=== PATIENT | female | born 1995 | race Caucasian/White ===

== ENCOUNTER 2018-03-30 12:32 | Emergency (ER) | payer OTHER ==
[2018-03-30 12:47] VITALS: BP 122/68; PULSE 78; TEMP 98; BMI 22.8
--- NOTE | 2018-03-30 14:10 | PDOC ---
Attending Attestation - Resident Resident Name: Hiro Hinton - ED Attending Attestation I have performed the following: I have examined & evaluated the patient, The case was reviewed & discussed with the resident, I agree w/resident's findings & plan, Exceptions are as noted - HPI HPI: 03/30/18 14:43 The patient is a 23 year old female with no significant PMH or PSH who presents to the emergency department with 3 days of epigastric pain. The patient reports that her epigastric pain is persistent and worsened with eating. She states that she had BBQ meat and 1 alcoholic drink on Friday. The patient reports that she has had a similar feeling like this before, about 3 years ago which was found to be gallbladder. She does not know if she had gallstones at the time. The patient reports associated nausea with her epigastric pain. The patient denies any other symptoms. She denies chest pain, shortness of breath, headache and dizziness. She denies fever, chills, vomiting, diarrhea, constipation or urinary symptoms. The patient denies any other complaints. v - Physicial Exam PE: 03/30/18 14:43 GENERAL: Awake, alert, and fully oriented, in no acute distress HEAD: No signs of trauma EYES: PERRLA, EOMI, sclera anicteric, conjunctiva clear ENT: Auricles normal inspection, hearing grossly normal, nares patent, oropharynx clear without exudates. Moist mucosa NECK: Normal ROM, supple, no lymphadenopathy, JVD, or masses LUNGS: Breath sounds equal, clear to auscultation bilaterally. No wheezes, and no crackles HEART: Regular rate and rhythm, normal S1 and S2, no murmurs, rubs or gallops ABDOMEN: Soft, +epigastric ttp, normoactive bowel sounds. No guarding, no rebound. No masses. Negative godoy sign EXTREMITIES: Normal range of motion, no edema. No clubbing or cyanosis. No cords, erythema, or tenderness NEUROLOGICAL: Normal speech, cranial nerves intact, negative pronator drift, 5/ 5 strength in all 4 extremities, normal sensation to light touch in all 4 extremities, normal cerebellar exam, normal gait, normal reflexes and tone SKIN: Warm, Dry, normal turgor, no rashes or lesions noted. - Medical Decision Making 03/30/18 14:44 23-year-old female with no significant past medical or surgical history presents emergency Department with epigastric pain worsened after eating. Vitals unremarkable. Exam with epigastric tenderness palpation. Differential includes but is not limited to gastritis versus cholecystitis versus pancreatitis. Plan: -labs -UPT -UA -pain control/antiemetics -reassess 03/30/18 16:40 Labs and ultrasound within normal limits. Patient is very well-appearing. On repeat exam still has mild epigastric tenderness palpation. Possible gastritis. Patient tolerating PO. Will refer her to primary doctor and gastroenterology for follow-up. Patient in agreement with plan and requests discharge home. I discussed the physical exam findings, ancillary test results and final diagnoses with the patient. I answered all of the patient's questions. The patient was satisfied with the care received and felt comfortable with the discharge plan and treatment plan. The patient will call their primary care physician within 24 hours to arrange follow-up and will return to the Emergency Department with any new, persistent or worsening symptoms.
[2018-03-30] MEDS ORDERED: FAMOTIDINE 20 MG/50 ML IVPB 20 MG/50 ML MG IVPB ONE ×2 (14:17→14:37)
[2018-03-30] MEDS ORDERED: ONDANSETRON 4 MG/2 ML VIAL IVPUSH ONE (14:17)
[2018-03-30] MEDS ORDERED: ACETAMINOPHEN 1000 MG/100 ML VIAL (NON FORMULARY) IVPB ONE (14:17)
[2018-03-30 14:34] LABS: BASO % 0.3 % (0-2.0); EOS % 0.1 % (0-4.5); HEMATOCRIT 39.8 % (32.4-45.2); HEMOGLOBIN 13.2 GM/dL (10.7-15.3); MCH 30.7 pg (25.7-33.7); MCHC 33.2 g/dl (32.0-36.0); MEAN CELL VOLUME 92.7 fl (80-96); MEAN PLT VOLUME 8.8 fl (7.5-11.1); MONO % 7.3 % (3.8-10.2); NEUT % 69.3 % (42.8-82.8); PLATELET COUNT 369 K/MM3 (134-434); RDW 13.7 % (11.6-15.6); WHITE BLOOD COUNT 7.1 K/mm3 (4.0-10.0)
[2018-03-30] MEDS ORDERED: ACETAMINOPHEN INJECTION 100 ML IVPB ONE (14:36)
[2018-03-30] MEDS ORDERED: ONDANSETRON 4 MG/2 ML VIAL ONE (14:37)
--- NOTE | 2018-03-30 14:42 | PDOC ---
History of Present Illness - General Chief Complaint: Pain, Acute Stated Complaint: ABD PAIN, NAUSEA Time Seen by Provider: 03/30/18 13:09 - History of Present Illness Initial Comments: 03/30/18 14:41 23 yo F with no significant pmh p/w abdominal pain. Patient reports acute sharp substernal, non radiating, intermittent abdominal pain beginning Friday (03-28) morning after waking up. Pain improved with ranitidine and worse with PO food intake. Patient reports eating barbeque the night before symptom onset. No other identifiable alleviators or triggers. Endorses intermittent nausea without vomiting. Denies F/C, N/V, CP, SOB, diarrhea, constipation, BPR, urinary complaints, weakness, lightheadedness, sensory changes. PMHx: As noted above. Denies h/o abdominal surgery. Denies h/o endoscopy. Does not f/w GI. Reports h/o "gallbladder disease." at age 19, treated with antibiotics x 2-3 weeks, but does not recall disorder. ROS: As noted above SHx: Reports tobacco "hookah" and Etoh use on weekends. Denies IVDA. Past History - Past Medical History Allergies/Adverse Reactions: Allergies Allergy/AdvReac Type Severity Reaction Status Date / Time Penicillins Allergy Verified 03/30/18 12:44 Home Medications: Ambulatory Orders Ondansetron [Zofran Odt -] 4 mg SL TID PRN #12 od.tablet 02/13/16 COPD: No - Immunization History Immunization Up to Date: Yes - Suicide/Smoking/Psychosocial Hx Smoking History: Never smoked Review of Systems - Review of Systems Comments:: 03/30/18 15:05 GENERAL/CONSTITUTIONAL: No fever or chills. No weakness. HEAD, EYES, EARS, NOSE AND THROAT: No change in vision. No ear pain or discharge. No sore throat. CARDIOVASCULAR: No chest pain or shortness of breath RESPIRATORY: No cough, wheezing, or hemoptysis. GASTROINTESTINAL:+ Abdominal pain. No nausea, vomiting, diarrhea or constipation. GENITOURINARY: No dysuria, frequency, or change in urination. MUSCULOSKELETAL: No joint or muscle swelling or pain. No neck or back pain. SKIN: No rash NEUROLOGIC: No headache, vertigo, loss of consciousness, or change in strength/ sensation. ENDOCRINE: No increased thirst. No abnormal weight change HEMATOLOGIC/LYMPHATIC: No anemia, easy bleeding, or history of blood clots. ALLERGIC/IMMUNOLOGIC: No hives or skin allergy. *Physical Exam - Vital Signs Last Vital Signs Temp Pulse Resp BP Pulse Ox 98.0 F 78 18 122/68 99 03/30/18 12:44 03/30/18 12:44 03/30/18 12:44 03/30/18 12:44 03/30/18 12:44 - Physical Exam Comments: 03/30/18 15:06 GENERAL: Awake, alert, and fully oriented, in no acute distress HEAD: No signs of trauma, normocephalic, atraumatic EYES: PERRLA, EOMI, sclera anicteric, conjunctiva clear ENT: Hearing grossly normal, nares patent, oropharynx clear without exudates. Moist mucosa NECK: Normal ROM, supple, no lymphadenopathy, JVD, or masses LUNGS: No distress, speaks full sentences, clear to auscultation bilaterally HEART: Regular rate and rhythm, normal S1 and S2, no murmurs, rubs or gallops, peripheral pulses normal and equal bilaterally. ABDOMEN: +substernal/epigastric ttp, NBS. No guarding, no rebound. No masses EXTREMITIES : Normal inspection, Normal range of motion, no edema. No clubbing or cyanosis. SKIN: Warm, Dry, normal turgor, no rashes or lesions noted ED Treatment Course - LABORATORY CBC & Chemistry Diagram: 03/30/18 14:30 03/30/18 14:30 - ADDITIONAL ORDERS Additional order review: 03/30/18 14:30 RBC 4.30 MCV 92.7 MCHC 33.2 RDW 13.7 MPV 8.8 Neutrophils % 69.3 Lymphocytes % 23.0 D Monocytes % 7.3 Eosinophils % 0.1 Basophils % 0.3 Medical Decision Making - Medical Decision Making 03/30/18 15:07 23 yo F with no significant pmh p/w abdominal pain. VSS, AF, A&OX3. + epigastric ttp. Symptoms likely 2/2 dyspepsia d/t GERD vs. gastritis, esophagitis. Will also consider biliary disease/ luis. low suspicion of pancreatitis, colitis, appendicitis, or urinary pathology. ED Course: CBC, CMP, Ua, Urine Cx. HCG, Lipase Tylenol, Famotidine, Zofran RUQ U/S 05/28/18 16:09 CBC, CMP: Unremarkable UA: neg 03/30/18 16:10 RUQ U/S: Unremarkable Pt. pain improved and tolerating PO intake. Stable for d/c with return precautions. Advised to f/u with PMD, and GI. *DC/Admit/Observation/Transfer Diagnosis at time of Disposition: Dyspepsia - Discharge Dispostion Disposition: HOME Condition at time of disposition: Stable Decision to Admit order: No - Referrals Referrals: Haim Flynn MD [Staff Physician] - Anselmo Mata MD [Staff Physician] - - Patient Instructions Printed Discharge Instructions: DI for Epigastric Pain, DI for Dyspepsia Additional Instructions: Please return to the emergency department with any new or worsening symptoms or concerns. Please follow up with your primary care physician within 72 hours. Please follow up with [facility] [employer] within 1 week. - Post Discharge Activity - Attestations Physician Attestion: 03/30/18 16:11 I attest to the information provided in this note.
[2018-03-30 14:50] LABS: URINE APPEARANCE CLEAR; URINE BILIRUBIN NEGATIVE (<2.0 mg/dL); URINE COLOR LTYELLOW; URINE GLUCOSE (UA) NEGATIVE (NEGATIVE); URINE KETONE NEGATIVE (NEGATIVE); URINE LEUK ESTERASE NEGATIVE (NEGATIVE); URINE NITRITE NEGATIVE (NEGATIVE); URINE PROTEIN NEGATIVE (NEGATIVE); URINE UROBILINOGEN NEGATIVE mg/dL (0.2-1.0)
[2018-03-30 14:59] LABS: ALBUMIN 4.3 g/dl (3.4-5.0); ANION GAP 7 (8-16); BLOOD UREA NITROGEN 9 mg/dL (7-18); CALCIUM 9.5 mg/dL (8.5-10.1); CHLORIDE 104 mmol/L (98-107); CO2 28 mmol/L (21-32); CREATININE 0.5 mg/dL (0.55-1.02); GLUCOSE,RANDOM 94 mg/dL (74-106); LIPASE 110 U/L (73-393); POTASSIUM 3.8 mmol/L (3.5-5.1); SGOT/AST 18 U/L (15-37); SGPT/ALT 38 U/L (12-78); SODIUM 139 mmol/L (136-145)
[2018-03-30 15:01] LABS: ALK PHOS 66 U/L (45-117); BILIRUBIN,TOTAL 0.5 mg/dL (0.2-1.0); TOT PROT 8.5 g/dl (6.4-8.2)
[2018-03-30 15:15] LABS: HCG,QUALITATIVE URINE NEGATIVE
== END 2018-03-30 16:46 | disposition home or self-care (01) ==
LOC: JER 12:32
PROC: 3E033GC Introduction of Other Therapeutic Substance into Peripheral Vein, Percutaneous Approach (ICD-10-PCS; principal; 2018-03-30)
PROC: 3E033GC Introduction of Other Therapeutic Substance into Peripheral Vein, Percutaneous Approach (ICD-10-PCS; 2018-03-30)
PROC: 3E033NZ Introduction of Analgesics, Hypnotics, Sedatives into Peripheral Vein, Percutaneous Approach (ICD-10-PCS; 2018-03-30)
DX: R10.13 Epigastric pain (principal)
CPT/HCPCS: 36415; 76705-TC; 80053; 81003; 83690; 84703; 85025; 96365; 96375; 99282-25; J0131

== ENCOUNTER 2020-08-07 21:40 | Emergency (ER) | payer OTHER ==
--- NOTE | 2020-08-07 21:56 | PDOC ---
Rapid Medical Evaluation Time Seen by Provider: 08/07/20 21:54 Medical Evaluation: Allergies Allergy/AdvReac Type Severity Reaction Status Date / Time Penicillins Allergy Verified 03/30/18 12:44 08/07/20 21:54 I have performed a brief in-person examination on this patient. CC: left foot pain x1 week PE: tender to dorsum of lateral left foot. Full ROM. Orders: xray, ice Patient will proceed to ED for further evaluation. Discharge Disposition - Diagnosis Foot pain, left - Referrals - Patient Instructions - Post Discharge Activity
[2020-08-07 22:06] VITALS: BP 110/75; PULSE 86; TEMP 97.7; BMI 26.2
--- OUTSIDE RECORDS SUMMARY | 2020-08-07 22:11 | XMS ---
:1995 Author Organization [facility] Support Name Relationship Address Phone [facility] Unavailable [address] [facility] [place] [address] CELESTINE [employer] MOTHER [address] [place] [address] Re-disclosure Warning The records that you are about to access may contain information from federally- assisted alcohol or drug abuse programs. If such information is present, then the following federally mandated warning applies: This information has been disclosed to you from records protected by federal confidentiality rules (42 CFR part 2). The federal rules prohibit you from making any further disclosure of this information unless further disclosure is expressly permitted by the written consent of the person to whom it pertains or as otherwise permitted by 42 CFR part 2. A general authorization for the release of medical or other information is NOT sufficient for this purpose. The Federal rules restrict any use of the information to criminally investigate or prosecute any alcohol or drug abuse patient.The records that you are about to access may contain highly sensitive health information, the redisclosure of which is protected by Article 27-F of the [facility] Public Health law. If you continue you may haveaccess to information: Regarding HIV / AIDS; Provided by facilities licensed or operated by the [facility] Office of Mental Health; or Provided by the [facility] Office for People With Developmental Disabilities. If such information is present, then the following [facility] mandated warning applies: This information has been disclosed to you from confidential records which are protected by state law. State law prohibits you from making any further disclosure of this information without the specific written consent of the person to whom it pertains, or as otherwise permitted by law. Any unauthorized further disclosure in violation of state law may result in a fine or halfway sentence or both. A general authorization for the release of medical or other information is NOT sufficient authorization for further disclosure. Insurance Providers Payer name Policy type Policy ID Covered Covered democrat's Policy P sun / Coverage democrat ID relationship to [employer] type [employer] [id number] SP [id number] FIRST
--- NOTE | 2020-08-07 22:44 | PDOC ---
History of Present Illness - General Chief Complaint: Pain Stated Complaint: FOOT PAIN Time Seen by Provider: 08/07/20 21:54 - History of Present Illness Initial Comments: 08/07/20 22:41 25-year-old female no comorbidities presents for atraumatic left foot pain x1 week Past History - Medical History Allergies/Adverse Reactions: Allergies Allergy/AdvReac Type Severity Reaction Status Date / Time Penicillins Allergy Verified 03/30/18 12:44 Home Medications: Ambulatory Orders Ondansetron [Zofran Odt -] 4 mg SL TID PRN #12 od.tablet 02/13/16 Omeprazole 20 mg PO DAILY 30 Days #30 tablet. 03/30/18 COPD: No - Reproductive History Is Patient Now?: No - Immunization History Immunization Up to Date: Yes - Psycho-Social/Smoking History Smoking History: Never smoked - Substance Abuse Hx (Audit-C & DAST Scrn) How often the patient has a drink containing alcohol: Never Score: In Men: 4 or > Positive; In Women: 3 or > Positive: 0 Screen Result (Pos requires Nsg. Audit-10AR): Negative Review of Systems - Review of Systems Constitutional: No: Fever Musculoskeletal: Yes: See HPI *Physical Exam - Vital Signs Last Vital Signs Temp Pulse Resp BP Pulse Ox 97.7 F 86 20 110/75 98 08/07/20 21:54 08/07/20 21:54 08/07/20 21:54 08/07/20 21:54 08/07/20 21:54 - Physical Exam 08/07/20 22:42 Left foot skin color and temperature normal full range of motion of the ankle and toes mild tenderness over the peroneal tendon at its insertion at the base of the fifth meta tarsal no gross sensorimotor deficits neurovascular intact Medical Decision Making - Medical Decision Making 08/07/20 22:42 Weight-bear as tolerated. Patient refused crutches. No fracture trauma or destructive process on radiograph follow-up with orthopedic surgery Discussed Tylenol Motrin for pain I have reviewed the pathophysiology with the patient. They are in agreement with the treatment plan all questions were answered to their satisfaction. Understanding for follow-up without fail was also conveyed to the patient. Again they are in agreement. Discharge - Discharge Information Problems reviewed: Yes Clinical Impression/Diagnosis: Foot pain, left Condition: Stable Disposition: HOME - Admission No - Follow up/Referral Referrals: Steffen Walls DO [Staff Physician] - - Patient Discharge Instructions Additional Instructions: Weight-bear as tolerated Tylenol Motrin for pain return to the emergency room for worsening symptoms and without fail follow-up with orthopedic surgery in 1 to 2 days for further evaluation and treatment options. - Post Discharge Activity
== END 2020-08-07 22:48 | disposition home or self-care (01) ==
LOC: JERFT 21:40 → JER 21:40 → JERFT 22:48
DX: M79.672 Pain in left foot (principal)
CPT/HCPCS: 73630-TC-LT; 99283-25

== ENCOUNTER 2022-03-07 13:33 | Emergency (ER) | payer OTHER ==
[2022-03-07 13:50] VITALS: BP 119/82; PULSE 88; TEMP 98.1; BMI 27.2
[2022-03-07] MEDS ORDERED: LIDOCAINE 5% TOPICAL PATCH TP ONE (15:18)
[2022-03-07] MEDS ORDERED: KETOROLAC TROMETHAMINE 30 MG/1 ML VIAL IM ONE (15:18)
[2022-03-07] MEDS ORDERED: LIDOCAINE 5% TOPICAL PATCH ONE (15:19)
[2022-03-07] MEDS ORDERED: KETOROLAC TROMETHAMINE 30 MG/1 ML VIAL ONE (15:19)
[2022-03-07] MEDS ORDERED: LIDOCAINE PATCH REMOVAL MC SCH (22:00)
== END 2022-03-07 15:45 | disposition home or self-care (01) ==
LOC: JERFT 13:33
PROC: 3E023GC Introduction of Other Therapeutic Substance into Muscle, Percutaneous Approach (ICD-10-PCS; principal; 2022-03-07)
DX: R51.9 Headache, unspecified (principal); M54.2 Cervicalgia
CPT/HCPCS: 99284-25

== ENCOUNTER 2023-09-29 18:07 | Emergency (ER) | payer OTHER ==
[2023-09-29 18:29] VITALS: BP 119/71; PULSE 81; RESP 18; TEMP 98.1; BMI 28.3
[2023-09-29] MEDS ORDERED: ACETAMINOPHEN 1000 MG/100 ML BAG IVPB ONE (20:01)
[2023-09-29] MEDS ORDERED: ACETAMINOPHEN INJECTION 100 ML IVPB ONE (20:24)
[2023-09-29 20:39] LABS: BASO % 0.4 % (0-2.0); EOS % 0.2 % (0-4.5); HEMATOCRIT 36.1 % (32.4-45.2); HEMOGLOBIN 12.1 GM/dL (10.7-15.3); LYMPH % 26.3 % (8-40); MCHC 33.6 g/dl (32.0-36.0); MEAN CELL VOLUME 89.2 fl (80-96); MEAN PLT VOLUME 9.6 fl (7.5-11.1); MONO % 7.3 % (3.8-10.2); NEUT % 65.8 % (42.8-82.8); PLATELET COUNT 335 10^3/uL (134-434); RBC 4.05 M/mm3 (3.60-5.2); RDW 13.3 % (11.6-15.6); WHITE BLOOD COUNT 10.4 K/mm3 (4.0-10.0)
[2023-09-29 20:41] LABS: POTASSIUM 3.8 mmol/L (3.5-5.1)
[2023-09-29 20:42] LABS: CALCIUM 9.6 mg/dL (8.5-10.1)
[2023-09-29 20:43] LABS: ALBUMIN 4.3 g/dl (3.4-5.0); BLOOD UREA NITROGEN 7.3 mg/dL (7-18)
[2023-09-29 20:46] LABS: CREATININE 0.6 mg/dL (0.55-1.3)
[2023-09-29 20:48] LABS: BILIRUBIN,TOTAL 0.3 mg/dL (0.2-1); TOT PROT 8.3 g/dl (6.4-8.2)
== END 2023-09-30 00:26 | disposition home or self-care (01) ==
LOC: JER 18:07
PROC: 3E033NZ Introduction of Analgesics, Hypnotics, Sedatives into Peripheral Vein, Percutaneous Approach (ICD-10-PCS; principal; 2023-09-29)
DX: O26.891 Other specified pregnancy related conditions, first trimester (principal); R10.30 Lower abdominal pain, unspecified; Z3A.01 Less than 8 weeks gestation of pregnancy
CPT/HCPCS: 36415; 76817-TC; 80053; 84702; 84703; 85025; 86850; 86900; 86901; 99284-25